=== PATIENT | male | born 1995 | race Caucasian/White ===

== ENCOUNTER 2017-05-09 11:07 | Emergency (ER) | payer SELFPAY ==
[2017-05-09 11:07] VITALS: BMI 25.8
[2017-05-09 11:11] VITALS: TEMP 98; O2SAT 99
[2017-05-09] MEDS ORDERED: Tmp-Smz 800 mg-160 mg DS Tab PO STA (12:25)
[2017-05-09] MEDS ORDERED: Tmp-Smz 800 mg-160 mg DS Tab ONE (12:36)
[2017-05-09 12:41] VITALS: BP 115/81; PULSE 70; RESP 18
--- NOTE | 2017-05-09 17:23 | C.PDOC ---
History Of Present Illness 21 year old male presents to the ED with complaints of an abscess to his lower back. Patient notes he has had similar symptoms in the past. He reports while walking to the hospital, the abscess burst and drained, pain has decreased. Patient denies fever or blood in the stool. Chief Complaint (Nursing): Abnormal Skin Integrity History Per: Patient History/Exam Limitations: no limitations Onset/Duration Of Symptoms: Intermittent Episodes Current Symptoms Are (Timing): Still Present Location Of Injury: Posterior: Back (lower back ) Quality Of Symptoms: Painful, Draining Recent travel outside of the [place]: No Past Medical History Reviewed: Historical Data, Nursing Documentation, Vital Signs Vital Signs: Last Vital Signs Temp 98 F 05/09/17 12:39 Pulse 70 05/09/17 12:39 Resp 18 05/09/17 12:39 BP 115/81 05/09/17 12:39 Pulse Ox 99 05/09/17 17:27 - Medical History PMH: Asthma - [facility] Procedures IMMOBILIZ/WOUND ATTN NEC (06/28/14) Family History: States: Unknown Family Hx - Social History Hx Alcohol Use: No Hx Substance Use: No - Immunization History Hx Tetanus Toxoid Vaccination: Yes Hx Influenza Vaccination: No Hx Pneumococcal Vaccination: No Review Of Systems Constitutional: Negative for: Fever Gastrointestinal: Negative for: Melena Skin: Positive for: Other (abscess to lower back ) Physical Exam - Physical Exam Appears: Non-toxic, No Acute Distress Skin: Warm, Dry, Other (draining 0.5 cm pilonidal cyst) Cardiovascular: Rhythm Regular, No Murmur Respiratory: No Rales, No Rhonchi, No Wheezing, Other (clear to auscultation bilaterally ) Extremity: Normal ROM, No Tenderness Neurological/Psych: Oriented x3 ED Course And Treatment O2 Sat by Pulse Oximetry: 99 (RA) Progress Note: Patient was given Motrin and Bactrim was applied. Patient was instructed to follow up with PMD. Disposition - Disposition Referrals: Tony Franz DO [Staff Provider] - Disposition: HOME/ ROUTINE Disposition Time: 12:15 Condition: GOOD Additional Instructions: Thank you for letting us take care of you today. Your provider was Dr. Mary. You were treated for an abscess. The emergency medical care you received today was directed at your acute symptoms. If you were prescribed any medication, please fill it and take as directed. It may take several days for your symptoms to resolve. Return to the Emergency Department if your symptoms worsen, do not improve, or if you have any other problems. Please contact your doctor or call one of the physicians/clinics you have been referred to that are listed on the Patient Visit Information form that is included in your discharge packet. Bring any paperwork you were given at discharge with you along with any medications you are taking to your follow up visit. Our treatment cannot replace ongoing medical care by a primary care provider (PCP) outside of the emergency department. Thank you for allowing the [facility] team to be part of your care today. Follow up with your primary doctor in 3-5 days for re-evaluation and further management. Prescriptions: Ibuprofen [Motrin] 600 mg PO Q6 PRN #20 tab PRN Reason: Pain, Moderate (4-7) Sulfamethoxazole/Trimethoprim [Bactrim DS 800 mg-160 mg] 1 tab PO BID #14 tab Instructions: Abscess (ED) Forms: Work Excuse - Clinical Impression Clinical Impression: Abscess - Scribe Statement The provider has reviewed the documentation as recorded by the Scribluisito Mckeon All medical record entries made by the Arcadioibluisito were at my direction and personally dictated by me. I have reviewed the chart and agree that the record accurately reflects my personal performance of the history, physical exam, medical decision making, and the department course for this patient. I have also personally directed, reviewed, and agree with the discharge instructions and disposition.
== END 2017-05-09 12:40 | disposition home or self-care (01) ==
LOC: C.ER 11:07
DX: L02.212 Cutaneous abscess of back [any part, except buttock and flank] (principal)

== ENCOUNTER 2017-08-06 14:15 | Emergency (ER) | payer OTHER ==
[2017-08-06 15:09] VITALS: BMI 28.1
[2017-08-06 15:14] VITALS: RESP 18; TEMP 97.9
[2017-08-06] MEDS ORDERED: Naproxen 550 mg Tab PO STA (15:43)
[2017-08-06] MEDS ORDERED: Naproxen 550 mg Tab PO ONE (15:58)
--- NOTE | 2017-08-06 16:15 | RAD ---
PROCEDURE: Right Wrist Radiographs. HISTORY: right wrist pain COMPARISON: None available. FINDINGS: BONES: Metallic plate and screw fixation of the distal radius. Vertical lucency within the distal radius identified on a single view presumably due to fracture. Remainder the visualized osseous structures appear intact without acute displaced fracture identified. JOINTS: No dislocation. SOFT TISSUES: Soft tissue swelling. OTHER FINDINGS: None. IMPRESSION: Metallic plate and screw fixation of the distal radius. Vertical lucent fracture line identified within the distal radius. Remainder of the visualized osseous structures appear intact without acute displaced fracture identified. Soft tissue swelling.
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
[2017-08-06 17:06] VITALS: BP 120/71; PULSE 69
[2017-08-06 18:15] VITALS: O2SAT 100
== END 2017-08-06 17:05 | disposition home or self-care (01) ==
LOC: C.ER 14:15
DX: S52.501A Unspecified fracture of the lower end of right radius, initial encounter for closed fracture (principal); X58.XXXA Exposure to other specified factors, initial encounter; G89.18 Other acute postprocedural pain

== ENCOUNTER 2018-09-30 16:12 | Emergency (ER) | payer OTHER | END 2018-09-30 17:34 | disposition home or self-care (01) | LOC: C.ER 16:12 ==